=== PATIENT | female | born 1955 | race African-American/Black ===

== ENCOUNTER 2023-02-17 16:51 | Emergency (ER) | payer MEDICARE | END 2023-02-17 18:12 | disposition home or self-care (01) | LOC: CSHERS 16:51 | DX: R04.0 Epistaxis (principal); I10 Essential (primary) hypertension; F17.210 Nicotine dependence, cigarettes, uncomplicated | CPT/HCPCS: 99283 ==

== ENCOUNTER 2023-08-15 08:43 | Outpatient (CLI) | payer OTHER | END 2023-08-15 08:44 | disposition home or self-care (01) | LOC: CSHCT 08:43 | PROVIDERS: ATTEND Student in an Organized Health Care Education/Training Program | DX: Z12.2 Encounter for screening for malignant neoplasm of respiratory organs (principal); F17.210 Nicotine dependence, cigarettes, uncomplicated; I25.10 Atherosclerotic heart disease of native coronary artery without angina pectoris; R91.8 Other nonspecific abnormal finding of lung field | CPT/HCPCS: 71271 ==

== ENCOUNTER 2023-09-13 14:39 | Emergency (ER) | payer OTHER ==
[2023-09-13] MEDS ORDERED: Oxymetazoline HCl 0.05% ( 15 ML ) ONE (15:20)
== END 2023-09-13 15:40 | disposition home or self-care (01) ==
LOC: CSHERS 14:39
DX: R04.0 Epistaxis (principal); I10 Essential (primary) hypertension; F17.210 Nicotine dependence, cigarettes, uncomplicated
CPT/HCPCS: 99283

== ENCOUNTER 2024-11-12 20:04 | Emergency (ER) | payer OTHER ==
[2024-11-12] MEDS ORDERED: Acetaminophen 500 MG TAB ONE (20:49)
[2024-11-12 21:16] LABS: Glucose, Urine (Dipstick) Normal (Negative); Leukocyte 25 (Negative); Protein, Urine (Dipstick) 30 mg/dl (Neg-Trace); Specific Gravity, Urine 1.015 (1.005-1.030)
[2024-11-12 21:32] LABS: Bacteria/HPF 4+ HPF (None Seen); CAUTI Indications for Culture Pelvic or flank pain; Mucous/LPF Rare LPF (<2+); Urine Culture Reflex Yes Yes
== END 2024-11-12 22:04 ==
LOC: CSHERS 20:04
DX: N39.0 Urinary tract infection, site not specified (principal); B34.9 Viral infection, unspecified; I10 Essential (primary) hypertension; F17.210 Nicotine dependence, cigarettes, uncomplicated
CPT/HCPCS: 71045; 81001; 87086; 87400; 87426

== ENCOUNTER 2024-11-27 11:32 | Outpatient (CLI) | payer OTHER | END 2024-11-27 11:33 | disposition home or self-care (01) | LOC: CSHULT 11:32 | PROVIDERS: ATTEND Student in an Organized Health Care Education/Training Program | DX: R01.1 Cardiac murmur, unspecified (principal); I11.9 Hypertensive heart disease without heart failure | CPT/HCPCS: 93306 ==